=== PATIENT | female | born 1935 | race Caucasian/White ===

== ENCOUNTER 2019-04-07 13:41 | Inpatient (IN) | payer MEDICARE ==
[2019-04-07] VITALS (8 sets, daily range): BP systolic 109–150; BP diastolic 49–64
[~2019-04-07] VITALS: Ht 162.6 cm; Wt 78.3 kg
[2019-04-07] MEDS ORDERED: ELIQ5TAB PO (13:52)
[2019-04-07] MEDS ORDERED: HYDR-3363 PO (13:52)
[2019-04-07] MEDS ORDERED: VITA500C24 PO (13:52)
[2019-04-07] MEDS ORDERED: AMLO10TA PO (13:52)
[2019-04-07] MEDS ORDERED: ATEN50TA2 PO (13:52)
[2019-04-07] MEDS ORDERED: DOXE10CA PO (13:52)
[2019-04-07] MEDS ORDERED: LISI10TA4 PO (13:52)
[2019-04-07] MEDS ORDERED: SPIR-10 PO (13:52)
[2019-04-07 14:35] LABS: BASO % 0.2 % (0.0-1.0); HEMOGLOBIN 12.4 g/dl (12.0-15.5); LYMPH % 22.1 % (24.0-44.0); MEAN CORPUSCULAR HGB CONC 32.6 g/dl (32.0-36.5); MEAN CORPUSCULAR VOLUME 98.2 fl (80.0-96.0); MONO # 1.1 10^3/uL (0.0-0.8); MONO % 12.6 % (0.0-5.0); NEUTROPHILS # 5.7 10^3/uL (1.5-8.5); NEUTROPHILS % 64.4 % (36.0-66.0); PLATELET COUNT, AUTOMATED 217 10^3/uL (150-450); RED BLOOD COUNT 3.87 10^6/uL (4.00-5.40); WHITE BLOOD COUNT 8.8 10^3/uL (4.0-10.0)
[2019-04-07 15:11] LABS: BLOOD UREA NITROGEN 13 MG/DL (7-18); CALCIUM LEVEL 8.4 MG/DL (8.8-10.2); CARBON DIOXIDE LEVEL 24 MEQ/L (21-32); CHLORIDE LEVEL 97 MEQ/L (98-107); CK-MB VALUE MASS < 1.0 NG/ML (<3.6); CPK CREATINE PHOSPHOKINASE 47 U/L (26-192); CREATININE FOR GFR 1.13 MG/DL (0.55-1.30); GLOMERULAR FILTRATION RATE 48.6 (>32); GLUCOSE, FASTING 100 MG/DL (70-100); MB/CK RELATIVE INDEX 2.13 (< OR =4); POTASSIUM SERUM 4.4 MEQ/L (3.5-5.1); SODIUM LEVEL 130 MEQ/L (136-145); TROPONIN I 0.12 NG/ML (< 0.10)
[2019-04-07 15:56] LABS: NT-PRO BNP 3563 PG/ML (<450)
[2019-04-07] MEDS ORDERED: FUROSEMIDE 20 MG/2 ML VIAL (J1940) IV ONE (16:00)
--- NOTE | 2019-04-07 16:12 | REP ---
CHEST, PORTABLE: Single view of the chest is performed. There are no prior studies. There is cardiomegaly. Vasculature is prominent and there are mild diffuse interstitial alveolar infiltrates, right greater than left. I suspect these findings represent CHF and pulmonary edema. There is mild calcification of the thoracic aorta. The mediastinal silhouette is otherwise unremarkable. Electronically Signed by Lino Perez MD 04/08/2019 08:59 A
--- NOTE | 2019-04-07 17:41 | HPE ---
DATE OF ADMISSION: 04/07/2019 PRIMARY CARE PROVIDER: Roddy Castellon MD, [place], [place] ATTENDING PHYSICIAN: Hospitalist group. CHIEF COMPLAINT: Acute coronary syndrome. HISTORY: Yahaira Ambrocio is an 84-year-old transferred from [facility]. She was recently admitted there 04/04- with elevated troponin, diagnosed with ischemic cardiomyopathy. Cardiac catheterization was advised. She declined this. She went home. She had recurrence of chest pain. She was transferred to here today to the hospitalist service. Her heat treat puller is Dr. Alcantara from [facility]. Recommendation from [facility] was cardiac catheterization, which the patient declined due to her age. PAST MEDICAL HISTORY: Shows atrial fibrillation, hypertensive heart disease, coronary artery disease, history of transient ischemic attack (TIA), macrocytosis without anemia, chronic hyponatremia, pulmonary lung nodule, not yet worked up, hearing loss. MEDICATIONS: - furosemide 20 mg daily - spironolactone 25 mg daily - vitamin C - atenolol 50 mg twice a day - doxepin 10 mg daily - amlodipine 10 mg daily - Eliquis 2.5 mg twice a day - Atarax 25 mg every 6 hours as needed - lisinopril 10 mg at bedtime ALLERGIES: None known. SOCIAL HISTORY: Does not smoke or drink any alcohol. REVIEW OF SYSTEMS: No epistaxis, rectal bleeding, urinary bleeding, palpitations. She is not currently having chest pain or shortness of breath. PHYSICAL EXAMINATION: Vital signs: Per flow sheet. 140/62. General appearance: Alert, conversant. No distress. Pupils equal, round, reactive to light. TMs and oropharynx benign. Neck: No masses. No thyromegaly. Lungs: Clear. Heart: Slow irregular rate and rhythm right around 60. Abdomen: Soft, nontender. No masses. Extremities: Trace peripheral edema. LABS: Chest x-ray here is a portable film that shows some increased interstitial markings. Portable chest x-ray at [facility] suggested a right pulmonary nodule for which CT as an outpatient was advised. Sodium 130, potassium 4.4, BUN 13, creatinine 1.1, glucose 100. Troponin 0.1. BNP 3560. White count 8.8, hemoglobin 12.4, platelets 217. IMPRESSION: 1. Acute coronary syndrome. Patient is being admitted to medical bed. She is declining colonoscopy. She will treated with aspirin. Continue on atenolol 50 mg twice a day and her Eliquis. Dr. Alcantara has been consulted. (Dr. Barahona is covering today - apparently away until tomorrow. His office will need to be called tomorrow about the consultation). She is declining cardiac catheterization. Wants to be treated medically. 2. Congestive heart failure. Echocardiogram has been ordered. Intravenous Lasix maintained a net diuresis of 1.2 liters per day. 3. Atrial fibrillation. Continue atenolol for rate control and Eliquis for thromboembolic prophylaxis. 4. Hypertension. Continue her atenolol. Continue spironolactone. Continue her amlodipine at a reduced dose of 5 mg daily. Continue lisinopril 10 mg daily. Rounding team will need to contact [facility] about the consultation tomorrow.
[2019-04-07] MEDS ORDERED: FURO20TA2 PO (17:54)
[2019-04-07] MEDS: FUROSEMIDE 100 MG/10 ML VIAL (J1940) IV SCH (18:22)
--- NOTE | 2019-04-07 20:46 | ECGEPIP ---
[facility] - ED Test Date: 2019-04-07 Pat Name: ERINN LEVY Department: Room: - Gender: Female Heavy Mobile Equipment Repairer: : 1935 Requested By: Sandra Cardoza Order Number: [id number] Reading MD: Sandra Cardoza Measurements Intervals [place] Rate: 63 P: [place]: 0 QRS: 33 QRSD: 78 T: 30 QT: 430 QTc: 440 Interpretive Statements ATRIAL FIBRILLATION LOW QRS VOLTAGE IN PRECORDIAL LEADS ABNORMAL RHYTHM ECG NO PRIOR Electronically Signed on 04-07-2019 20:46:26 EDT by Sandra Cardoza
[2019-04-07] MEDS: ATENOLOL 50 MG TAB PO SCH (20:58)
[2019-04-07] MEDS: DOXEPIN 10 MG CAP PO SCH (20:58)
[2019-04-07] MEDS ORDERED: APIXABAN 2.5 MG TAB (ELIQUIS) PO SCH (21:00)
[2019-04-07] MEDS ORDERED: APIXABAN 2.5 MG TAB (ELIQUIS) PO ONE (21:45)
[2019-04-08] VITALS (10 sets, daily range): BP systolic 95–132; BP diastolic 45–67
[2019-04-08 05:55] LABS: HEMATOCRIT 34.4 % (36.0-47.0); HEMOGLOBIN 11.7 g/dl (12.0-15.5); PLATELET COUNT, AUTOMATED 181 10^3/uL (150-450); RED BLOOD COUNT 3.66 10^6/uL (4.00-5.40)
[2019-04-08] MEDS: FUROSEMIDE 100 MG/10 ML VIAL (J1940) IV SCH ×2 (06:00)
[2019-04-08 06:19] LABS: CALCIUM LEVEL 8.8 MG/DL (8.8-10.2); CREATININE FOR GFR 1.28 MG/DL (0.55-1.30); GLOMERULAR FILTRATION RATE 42.1 (>32); POTASSIUM SERUM 4.1 MEQ/L (3.5-5.1)
[2019-04-08] MEDS ORDERED: hydrOXYzine 10 MG TAB PO STA (06:46)
[2019-04-08] MEDS: ATENOLOL 50 MG TAB PO SCH ×2 (09:00→20:02)
[2019-04-08] MEDS ORDERED: amLODIPine 5 MG TAB PO SCH (09:00)
[2019-04-08] MEDS: LISINOPRIL 10 MG TAB PO SCH (09:00)
[2019-04-08] MEDS: ASPIRIN 81 MG ENTERIC TAB PO SCH (09:24)
[2019-04-08] MEDS: SPIRONOLACTONE 12.5MG PER 1/2 TABLET PO SCH (09:24)
[2019-04-08] MEDS: APIXABAN 5 MG TAB (ELIQUIS) PO SCH ×2 (09:25→20:02)
[2019-04-08] MEDS: FUROSEMIDE 40 MG/4 ML VIAL (J1940) IV SCH (09:26)
[2019-04-08 12:41] LABS: TROPONIN I 0.11 NG/ML (< 0.10)
--- NOTE | 2019-04-08 13:24 | IPNPDOC ---
Subjective Date Seen The patient was seen on 04/08/19. Subjective Chief Complaint/HPI Says feels better. Denies any SOB, denies any chest pain. Says had an anxiety attack early this morning. Objective Physical Examination General Exam: Positive: Alert, Cooperative, No Acute Distress Eye Exam: Positive: PERRLA, Conjunctiva & lids normal, EOMI; Negative: Sclera icteric ENT Exam: Positive: Atraumatic, Mucous membr. moist/pink, Pharynx Normal Neck Exam: Positive: Supple; Negative: JVD, thyromegaly Chest Exam: Positive: Normal air movement, Other (faint crackles at the left base); Negative: Rales, Rhonchi, Wheezing Heart Exam: Positive: Rate Normal, Irregular Rhythm, Normal S1, Normal S2; Negative: Murmurs, Rubs Abdomen Exam: Positive: Normal bowel sounds, Soft; Negative: Tenderness, Hepatospenomegaly Extremity Exam: Positive: Edema (trace around the ankles.), Normal pulses; Negative: Clubbing, Cyanosis Skin Exam: Positive: Nl turgor and temperature; Negative: Rash, Breakdown Psych Exam: Positive: Mental status NL, Mood NL, Memory Intact, Oriented x 3 Assessment /Plan Assessment 84-year-old with PMH of ischemic cardiomyopathy, hypertension with hypertensive heart disease, hyperlipidemia, anxiety, Afib , coronary artery disease, history of transient ischemic attack (TIA), macrocytosis without anemia, chronic hyponatremia, pulmonary lung nodule, not yet worked up, hearing loss. transferred from [facility]. She was recently admitted there 04/04- with chest pain and elevated troponin, diagnosed with ischemic cardiomyopathy. Cardiac catheterization was advised. She declined this. She went home. She had recurrence of chest pain. She was transferred to here to the hospitalist service. Her can vacuum tester is Dr. Alcantara from [facility]. Recommendation from [facility] was cardiac catheterization, which the patient declined due to her age. Congestive heart failure. due to ischemic cardiomyopathy continue IV lasix, lisinopril , fluid restriction I/O monitoring. Echo done result pending. Acute coronary syndrome. with h/o CAD on aspirin. Continue on atenolol 50 mg twice a day and her Eliquis. Dr [place] gonzalez. She is declining cardiac catheterization. Wants to be treated medically. Atrial fibrillation. Continue atenolol for rate control and Eliquis for thromboembolic prophylaxis. Hypertension. Continue her atenolol. Continue spironolactone and lisinopril with hold par ameters. Plan/VTE VTE Prophylaxis Ordered?: Yes VS, I&O, 24H, Fishbone Vital Signs/I&O Vital Signs Date Time Temp Pulse Resp B/P (MAP) Pulse Ox O2 Delivery O2 Flow Rate FiO2 04/08/19 12:03 97.7 63 15 111/51 (71) 97 04/07/19 16:30 Room Air I&O- Last 24 Hours up to 6 AM 04/08/19 06:00 Intake Total 210 ml Output Total 2900 ml Balance -2690 ml Laboratory Data 24H LABS Laboratory Tests 2 04/07/19 14:19: Immature Granulocyte % (Auto) 0.7, White Blood Count 8.8, Red Blood Count 3.87L, Hemoglobin 12.4, Hematocrit 38.0, Mean Corpuscular Volume 98.2H, Mean Corpuscular Hemoglobin 32.0, Mean Corpuscular Hemoglobin Concent 32.6, Red Cell Distribution Width 13.2, Platelet Count 217, Neutrophils (%) (Auto) 64.4, Lymphocytes (%) (Auto) 22.1L, Monocytes (%) (Auto) 12.6H, Eosinophils (%) (Auto) 0.0, Basophils (%) (Auto) 0.2, Neutrophils # (Auto) 5.7, Lymphocytes # (Auto) 2.0, Monocytes # (Auto) 1.1H, Eosinophils # (Auto) 0.0, Basophils # (Auto) 0.0, Nucleated Red Blood Cells % (auto) 0.0, Anion Gap 9, Glomerular Filtration Rate 48.6, Blood Urea Nitrogen 13, Creatinine 1.13, Sodium Level 130L, Potassium Level 4.4, Chloride Level 97L, Carbon Dioxide Level 24, Calcium Level 8.4L, Total Creatine Kinase 47, Creatine Kinase MB < 1.0, Creatine Kinase MB Relative Index 2.13, Troponin I 0.12H, SD-Hgr-M-Type Natriuretic Peptide 3563H 04/08/19 05:45: Nucleated Red Blood Cells % (auto) 0.0, Anion Gap 7L, Glomerular Filtration Rate 42.1, Blood Urea Nitrogen 15, Creatinine 1.28, Sodium Level 131L, Potassium Level 4.1, Chloride Level 94L, Carbon Dioxide Level 30, Calcium Level 8.8, Troponin I 0.11H CBC/BMP Laboratory Tests 04/07/19 14:19 Red Blood Count 3.87 L, Mean Corpuscular Volume 98.2 H, Mean Corpuscular Hemoglobin 32.0, Mean Corpuscular Hemoglobin Concent 32.6, Red Cell Distribution Width 13.2, Neutrophils (%) (Auto) 64.4, Lymphocytes (%) (Auto) 22.1 L, Monocytes (%) (Auto) 12.6 H, Eosinophils (%) (Auto) 0.0, Basophils (%) (Auto) 0.2, Neutrophils # (Auto) 5.7, Lymphocytes # (Auto) 2.0, Monocytes # (Auto) 1.1 H, Eosinophils # (Auto) 0.0, Basophils # (Auto) 0.0, Calcium Level 8.4 L, Total Creatine Kinase 47 04/08/19 05:45 Red Blood Count 3.66 L, Mean Corpuscular Volume 94.0, Mean Corpuscular Hemoglobin 32.0, Mean Corpuscular Hemoglobin Concent 34.0, Red Cell Distribution Width 13.1, Calcium Level 8.8 PACO HOFF MD Apr 08, 2019 13:24
[2019-04-08] MEDS ORDERED: hydrOXYzine 10 MG TAB PO PRN (13:30)
--- NOTE | 2019-04-08 19:01 | ECHO ---
DATE OF PROCEDURE: 04/08/2019 REFERRING PHYSICIAN: Akhil Amaro MD INDICATION: Edema. Atrial fibrillation, shortness of breath. HEIGHT: 64 inches WEIGHT: 78 kg DIMENSIONS: IVS: 1.1 LV: 3.6 LVPW: 1.1 LA: 3.8 Aorta: 2.6 RV: 3.4 IVC: 1.7 Left atrial volume index: 46 FINDINGS The study is of acceptable technical quality. The patient is in atrial fibrillation with controlled rate. There are good parasternal views but limited apical views. Left ventricle is of normal size and normal systolic function, I estimate LVEF 65-70%. No apparent segmental wall motion abnormalities are noted. Right ventricle was poorly visualized. It does appear hypokinetic. There is severe biatrial enlargement. Aortic valve is tricuspid. It is mildly sclerotic, but mobility of cusps is preserved. There are mild degenerative abnormalities of mitral valve. I do not appreciate any distinct prolapse. Tricuspid valve was poorly seen but grossly appears normal. Pulmonic valve appears normal. Trivial pericardial effusion is noted. Inferior vena cava is normal size and appropriately collapses with respiration indicative of normal central venous pressure. Aortic root and visualized segment of aortic arch appear normal. Limited views of abdominal aorta also normal. Doppler interrogation of aortic valve reveals no stenosis and mild insufficiency. There is also mild mitral and at least moderate tricuspid insufficiency. Calculated pulmonary artery pressure is mid to high 40s corresponding to moderate pulmonary hypertension. Evaluation of diastolic function is inconclusive due to underlying atrial fibrillation. CONCLUSIONS 1. Study is of acceptable technical quality. 2. Normal LV size with normal LV systolic function. 3. Aortic sclerosis with no stenosis and mild insufficiency. 4. Mild mitral insufficiency. 5. At least moderate tricuspid insufficiency. 6. Likely normal central venous pressure, but moderate pulmonary hypertension. COMMENT Subacute bacterial endocarditis (SBE) prophylaxis is not recommended.
--- NOTE | 2019-04-08 19:17 | CR ---
DATE OF CONSULTATION: 04/08/2019 HISTORY OF PRESENT ILLNESS: I was asked to see Mrs. Ambrocio by hospitalist service. She is previously unknown to me but has been followed by my partner, Dr. Alcantara. She presented to [facility] on 04/04/2019 with complaints of gradually increasing shortness of breath of approximately 2 weeks duration. She denies having any chest discomfort of any sorts. The dyspnea was somewhat unpredictable in nature. She said she did not have paroxysmal nocturnal dyspnea (PND), orthopnea or significant peripheral edema but would have spells of severe shortness of breath coming without obvious trigger and lasting several minutes at a time. She was also noticing progressive exertional intolerance. On presentation to [facility], she was found to be in congestive heart failure, but besides others had also mildly elevated troponin in indeterminate range. There were no ischemic abnormalities on ECG. She was reportedly recommended to undergo cardiac catheterization but declined. Then, on the day of admission to this facility, she was supposed to have an office visit in our office, but on the way was still short of breath and was recommended that she go to the emergency room. At bedside, she looks comfortable. She tells me that she was able to sleep without any difficulty. There was no PND, orthopnea last night, but earlier this morning, she apparently had one of her "spells." She became suddenly fairly severely short of breath, but then this sensation resolved within a few minutes without any specific intervention. Again, denies any chest discomfort. PAST MEDICAL HISTORY: 1. Chronic atrial fibrillation. 2. Hypertension. 3. Remote history of mitral valve prolapse, I am not sure about how well documented. 4. Macular degeneration. 5. History of pulmonary nodule. 6. Last echocardiogram available to me on an outpatient basis is from June 2016 and revealed preserved left ventricular systolic function, mild mitral and aortic insufficiency and moderate tricuspid insufficiency, and moderate pulmonary hypertension. 7. To the best of my understanding, she does not carry a history of coronary artery disease. The patient denies any history of evaluation for coronary artery disease, does not recall that she would ever have any cardiac catheterizations. 8. Transient ischemic attack (TIA). SURGICAL HISTORY: Hysterectomy. SOCIAL HISTORY: The patient never smoked. Does not drink alcohol. FAMILY HISTORY: No longer relevant considering her advanced age. OUTPATIENT MEDICATIONS: According to office note from January, of Dr. [place], she is on furosemide 20 mg a day, atenolol 50 mg twice a day, aspirin 81 mg a day, doxepin 10 mg a day, spironolactone 25 mg a day, and she was on Coumadin which was since replaced by Eliquis. According to admission note, she was also taking lisinopril 10 mg a day and amlodipine 10 mg a day. The patient is not clear whether she did or did not take these medications. ALLERGIES: No allergies. REVIEW OF SYSTEMS: She denies any recent fever, chills, nausea, vomiting or diarrhea. She denies any history of prakash stroke. She denies any history of bleeding, specifically denies epistaxis or gastrointestinal (GI) bleeding. No significant peripheral edema. No syncope or near syncope. No chest discomfort. PHYSICAL EXAMINATION: Mrs. Ambrocio is an elderly white female. She appears much younger than her calendar age. When I saw her in the morning, the last set of vital signs revealed blood pressure 111/54, heart rate was in 70s . She was afebrile and saturation was 94% on 2 liters of oxygen by nasal cannula. Weight was documented at 78.3 kg, which is about 1-1/2 kg down since yesterday. She was alert and oriented and appropriate. I did not appreciate any jugular venous pressure (JVP) elevation. Lungs were reasonably clear. No wheezing, crackles or rhonchi. Heart exam reveals irregular rhythm with murmur over the aortic valve, not very prominent, not more than 1 or 2 out of 6 intensity. Second heart sound is well preserved. I do not appreciate any distinct mitral, tricuspid murmur. Abdomen is mildly obese but soft, nontender. No appreciated hepatosplenomegaly. Extremities are free of edema. Peripheral pulses are palpable. LABORATORY DATA: Basic metabolic panel this morning is normal but for sodium 131, troponin is 0.11, which is down from 0.12 yesterday and N-terminal pro-BNP was 3500. CBC: Normal WBC count, hemoglobin 11.7, hematocrit 34, platelet count 181,000. ASSESSMENT/PLAN: Mrs. Ambrocio is an 84-year-old female with chronic atrial fibrillation but without previously documented coronary artery disease. She presented with approximately a 2-week history of intermittent episodes of dyspnea that does not have character of PND or orthopnea, associated with minimal troponin elevation and evidence for congestive heart failure based on physical exam, BNP and chest x-ray. She never had any chest discomfort. ECG on admission revealed atrial fibrillation but otherwise essentially normal tracing without any ST-segment shift. She was recommended to undergo cardiac catheterization but declined. I am not convinced that this presentation is consistent with acute coronary syndrome, even though it should be considered in differential diagnosis. I suspect that she most likely has principally right-sided congestive heart failure with component of left-sided disease as well. When I see her, she is already much improved and consequently I am making the judgment based on already much improved condition. She is relatively hypotensive and consequently I discontinued her amlodipine and reduced the dose of diuretics. She certainly does not look volume overloaded by my physical examination. I believe that we will most likely treat her conservatively. I hope that tomorrow we can switch her to solely oral medications and let her ambulate and if well tolerated, she probably can be discharged home within a day or two. She then should have outpatient evaluation with noninvasive stress test, but I leave this decision to Dr. Alcantara who is her tile applicator. Otherwise, I would continue aspirin and Eliquis. She is well beta-blocked, and her heart rate is well controlled. She is also on spironolactone and lisinopril. I did discontinue the amlodipine due to low blood pressure, and the additional antihypertensive medications may need to be held as well if her blood pressure remains low. I also had a long discussion with the patient about her wishes. Even though she would prefer not to have cardiac catheterization, she said that if it was a question of life or , she would definitely proceed. I will add statin to her medications. I will follow the patient with you. JENNA
[2019-04-08] MEDS: DOXEPIN 10 MG CAP PO SCH (20:02)
[2019-04-08] MEDS ORDERED: ATORVASTATIN 20 MG TAB PO SCH (21:00)
[2019-04-09 06:00] VITALS: BP 127/60
[2019-04-09 06:38] LABS: HEMATOCRIT 34.7 % (36.0-47.0); HEMOGLOBIN 11.7 g/dl (12.0-15.5); MEAN CORPUSCULAR HEMOGLOBIN 32.5 pg (27.0-33.0); MEAN CORPUSCULAR HGB CONC 33.7 g/dl (32.0-36.5); MEAN CORPUSCULAR VOLUME 96.4 fl (80.0-96.0); PLATELET COUNT, AUTOMATED 199 10^3/uL (150-450); WHITE BLOOD COUNT 4.9 10^3/uL (4.0-10.0)
[2019-04-09 07:08] LABS: CALCIUM LEVEL 8.3 MG/DL (8.8-10.2); CREATININE FOR GFR 1.37 MG/DL (0.55-1.30); GLOMERULAR FILTRATION RATE 38.9 (>32); POTASSIUM SERUM 3.7 MEQ/L (3.5-5.1)
[2019-04-09] MEDS: SPIRONOLACTONE 12.5MG PER 1/2 TABLET PO SCH (08:25)
[2019-04-09] MEDS: LISINOPRIL 10 MG TAB PO SCH (08:25)
[2019-04-09] MEDS: ASPIRIN 81 MG ENTERIC TAB PO SCH (08:25)
[2019-04-09] MEDS: FUROSEMIDE 40 MG/4 ML VIAL (J1940) IV SCH (08:25)
[2019-04-09] MEDS: APIXABAN 5 MG TAB (ELIQUIS) PO SCH (08:25)
[2019-04-09 08:26] VITALS: BP 109/61
[2019-04-09] MEDS: ATENOLOL 50 MG TAB PO SCH (08:26)
[2019-04-09] MEDS ORDERED: ASPI81TAEC PO (09:17)
[2019-04-09] MEDS ORDERED: ATOR1TAB21 PO (09:17)
[2019-04-09] MEDS ORDERED: FURO20TA2 PO (09:17)
[2019-04-09] MEDS ORDERED: SPIR-10 PO (09:17)
--- NOTE | 2019-04-09 14:53 | DS.PDOC ---
Discharge Summary General Date of Admission Apr 07, 2019 at 16:51 Date of Discharge 04/09/19 Discharge Summary PROCEDURES PERFORMED DURING STAY: Echo: 04/07/19 Normal LV size with normal LV systolic function. Aortic sclerosis with no stenosis and mild insufficiency. Mild mitral insufficiency. At least moderate tricuspid insufficiency. Likely normal central venous pressure, but moderate pulmonary hypertension. Patient was in Afib so diastolic function could not be determined. DISCHARGE DIAGNOSES: Acute on Chronic CHF with preserved systolic function. Chronic hyponatremia CAN due to diuresis. SECONDARY DIAGNOSIS: Hypertension with hypertensive heart disease, hyperlipidemia, anxiety, Afib , coronary artery disease, history of transient ischemic attack (TIA), macrocytosis without anemia, chronic hyponatremia, pulmonary lung nodule, not yet worked up, hearing loss, Questionable history of ischemic cardiomyopathy. COMPLICATIONS/CHIEF COMPLAINT: Acute Coronary Syndrome. HISTORY OF PRESENT ILLNESS: See history and physical HOSPITAL COURSE: 84-year-old with PMH of questionable history of ischemic cardiomyopathy, hypertension with hypertensive heart disease, hyperlipidemia, anxiety, Afib history of transient ischemic attack (TIA), macrocytosis without anemia, chronic hyponatremia, pulmonary lung nodule, not yet worked up, hearing loss. transferred from [facility]. She was recently admitted there 04/04- with chest pain and elevated troponin, diagnosed with ischemic cardiomyopathy. Cardiac catheterization was advised. She declined this. She went home. She had recurrence of chest pain. She was transferred to here to the hospitalist service. Her sessions clerk is Dr. Alcantara from [facility]. Recommendation from [facility] was cardiac catheterization, which the patient declined due to her age. Acute on chronic Congestive heart failure with preserved systolic function due to ischemic cardiomyopathy continue lasix 40 mg and spironolactone Chronic Atrial fibrillation. Continue atenolol for rate control and Eliquis Hypertension. Continue her atenolol. Continue spironolactone and lasix increased to 40 mg amlodipine and lisinopril has been stopped as Bp low in the hospital Remote history of mitral valve prolapse Macular degeneration. History of pulmonary nodule. Transient ischemic attack (TIA). continue and statin. DISCHARGE MEDICATIONS: Please see below. ALLERGIES: Please see below. PHYSICAL EXAMINATION ON DISCHARGE: VITAL SIGNS: Please see below. General Exam: Positive: Alert, Cooperative, No Acute Distress Eye Exam: Positive: PERRLA, Conjunctiva & lids normal, EOMI; Negative: Sclera icteric ENT Exam: Positive: Atraumatic, Mucous membr. moist/pink, Pharynx Normal Neck Exam: Positive: Supple; Negative: JVD, thyromegaly Chest Exam: Positive: Normal air movement, Other (faint crackles at the left base); Negative: Rales, Rhonchi, Wheezing Heart Exam: Positive: Rate Normal, Irregular Rhythm, Normal S1, Normal S2; Negative: Murmurs, Rubs Abdomen Exam: Positive: Normal bowel sounds, Soft; Negative: Tenderness, Hepatospenomegaly Extremity Exam: Positive: Edema (trace around the ankles.), Normal pulses; Negative: Clubbing, Cyanosis Skin Exam: Positive: Nl turgor and temperature; Negative: Rash, Breakdown Psych Exam: Positive: Mental status NL, Mood NL, Memory Intact, Oriented x 3 LABORATORY DATA: Please see below. ACTIVITY: [As tolerated]. DIET: 2 gm sodium DISCHARGE PLAN: Home DISPOSITION: 01 Home, Self-Care. DISCHARGE INSTRUCTIONS: Follow up PMD in [address] Alcantara/Dr Barahona in 1 to 2 weeks DISCHARGE CONDITION: [Stable]. TIME SPENT ON DISCHARGE: 35 minutes. Vital Signs/I&Os Vital Signs Date Time Temp Pulse Resp B/P (MAP) Pulse Ox O2 Delivery O2 Flow Rate FiO2 04/09/19 08:26 57 109/61 04/09/19 06:00 97.0 18 98 04/07/19 16:30 Room Air I&O- Last 24 Hours up to 6 AM 04/09/19 06:00 Intake Total 1110 ml Output Total 1100 ml Balance 10 ml Laboratory Data Labs 24H Laboratory Tests 2 04/09/19 05:49: Nucleated Red Blood Cells % (auto) 0.0, Anion Gap 7L, Glomerular Filtration Rate 38.9, Blood Urea Nitrogen 27#H, Creatinine 1.37H, Sodium Level 131L, Potassium Level 3.7, Chloride Level 94L, Carbon Dioxide Level 30, Calcium Level 8.3L CBC/BMP Laboratory Tests 04/09/19 05:49 Red Blood Count 3.60 L, Mean Corpuscular Volume 96.4 H, Mean Corpuscular Hemoglobin 32.5, Mean Corpuscular Hemoglobin Concent 33.7, Red Cell Distribution Width 13.1, Calcium Level 8.3 L Discharge Medications Scheduled Apixaban (Eliquis) 5 Mg Tablet, 5 MG PO BID, (Reported) Ascorbic Acid (Vitamin C) 500 Mg Capsule, 500 MG PO DAILY, (Reported) Aspirin (Aspirin EC) 81 Mg Tablet.dr, 81 MG PO QAM Atenolol (Atenolol) 50 Mg Tablet, 50 MG PO BID, (Reported) Atorvastatin Calcium (Atorvastatin Calcium) 20 Mg Tablet, 40 MG PO QHS Doxepin HCl (Doxepin HCl) 10 Mg Capsule, 10 MG PO DAILY, (Reported) Furosemide (Furosemide) 20 Mg Tablet, 40 MG PO DAILY Spironolactone (Spironolactone) 25 Mg Tablet, 12.5 MG PO DAILY Scheduled PRN Hydroxyzine HCl (Hydroxyzine HCl) 25 Mg Tablet, 50 MG PO Q6H PRN for ANXIETY, (Reported) PT STATES THAT SHE IS WORRIED ABOUT TAKING MORE THAN A QUARTER OR A HALF TABLET BECAUSE IT DROPS HER BLOOD PRESSURE LOWER Allergies Coded Allergies: No Known Allergies (Unverified , 04/07/19) PACO HOFF MD Apr 09, 2019 14:53
--- NOTE | 2019-04-09 21:16 | ECGEPIP ---
[facility] Test Date: 2019-04-09 Pat Name: ERINN LEVY Department: Room: [place] [address] Gender: Female Sales Utility Representative: BARNEY : 1935 Requested By: Tita Barahona Order Number: [id number] Reading MD: Timbo Dumont Measurements Intervals [place] Rate: 60 P: [place]: 0 QRS: 27 QRSD: 87 T: 30 QT: 438 QTc: 438 Interpretive Statements Atrial fibrillation with controlled ventricular response Incomplete right bundle branch block Low QRS complex voltage in all leads No significant change when compared to prior tracing of 04/07/2019 Electronically Signed on 04-09-2019 21:16:03 EDT by Timbo Dumont
== END 2019-04-09 11:18 | disposition home or self-care (01) | DRG 292 ==
LOC: M ED 13:41 → M ED INP 16:51 → M ICU 18:03 → M MSPAV 04-08 21:57
PROVIDERS: ADMIT Family Medicine; ATTEND Internal Medicine Nephrology
DX: I11.0 Hypertensive heart disease with heart failure (principal); I24.9 Acute ischemic heart disease, unspecified; N17.9 Acute kidney failure, unspecified; E87.1 Hypo-osmolality and hyponatremia; I25.5 Ischemic cardiomyopathy; I48.2 Chronic atrial fibrillation; I50.33 Acute on chronic diastolic (congestive) heart failure; I36.0 Nonrheumatic tricuspid (valve) stenosis; I27.20 Pulmonary hypertension, unspecified; E78.5 Hyperlipidemia, unspecified; Z86.73 Personal history of transient ischemic attack (TIA), and cerebral infarction without residual deficits; R91.1 Solitary pulmonary nodule; Z79.82 Long term (current) use of aspirin; Z79.899 Other long term (current) drug therapy; I25.10 Atherosclerotic heart disease of native coronary artery without angina pectoris; H35.30 Unspecified macular degeneration